=== PATIENT | male | born 1940 | race Caucasian/White ===

== ENCOUNTER 2017-11-28 11:33 | Day surgery (SDC) | payer OTHER, MEDICARE ==
[~2017-11-28] VITALS: Ht 170.2 cm; Wt 93.0 kg
[2017-11-28] MEDS ORDERED: Coq-10100 MG PO (12:33)
[2017-11-28] MEDS ORDERED: Pravastatin Sod40 MG PO (12:33)
[2017-11-28] MEDS ORDERED: HYDR1TAB94 PO (12:34)
[2017-11-28] MEDS ORDERED: DIPH50 PO (12:35)
[2017-11-28] MEDS ORDERED: Advil200 M1 PO (12:36)
[2017-11-28] MEDS ORDERED: Omeprazole20 M1 PO (12:36)
== END 2017-11-28 16:40 | disposition home or self-care (01) ==
LOC: ORSCSDS 11:33
PROVIDERS: Orthopaedic Surgery
PROC: 0QSK04Z Reposition Left Fibula with Internal Fixation Device, Open Approach (ICD-10-PCS; principal; 2017-11-28 12:30)
DX: S82.62XA Displaced fracture of lateral malleolus of left fibula, initial encounter for closed fracture (principal); I10 Essential (primary) hypertension; K21.9 Gastro-esophageal reflux disease without esophagitis; Z79.899 Other long term (current) drug therapy
CPT/HCPCS: 86850; 86900; 86901; C1713; C1769; J0690; J1100; J2370; J2405; J3010; J7120